=== PATIENT | male | born 1985 | race Caucasian/White ===

== ENCOUNTER 2016-07-24 18:58 | Emergency (ER) | payer MEDICARE, OTHER ==
[~2016-07-24] VITALS: Ht 177.8 cm; Wt 63.9 kg
[2016-07-24 19:13] VITALS: BP 118/75
[2016-07-24] MEDS ORDERED: FLUORESCEIN OPHTHALMIC 1 MG STRIP ONE (20:05)
[2016-07-24] MEDS ORDERED: PROPARACAINE OPHTH 0.5%, 15ML ONE (20:05)
[2016-07-24] MEDS ORDERED: PROPARACAINE OPHTH 0.5%, 15ML LEFTEYE ONE (20:30)
[2016-07-24] MEDS ORDERED: FLUORESCEIN OPHTHALMIC 1 MG STRIP LEFTEYE ONE (20:30)
== END 2016-07-24 21:44 | disposition home or self-care (01) ==
LOC: ED 21:37
DX: H10.022 Other mucopurulent conjunctivitis, left eye (principal)
CPT/HCPCS: 99283